=== PATIENT | female | born 1935 | race Caucasian/White ===

== ENCOUNTER 2020-06-28 05:31 | Inpatient (IN) | payer MEDICARE, MEDICAID, SELFPAY ==
[2020-06-28] VITALS (17 sets, daily range): BP systolic 118–253; BP diastolic 54–207; PULSE 84–140; RESP 16–24; TEMP 36.3–36.9; O2SAT 92–99; BMI 24.0; BMI 23.8; BMI 23.9
--- NOTE | 2020-06-28 05:32 | RAD_ITS ---
STUDY: X-RAY CHEST REASON FOR EXAM: Female, 85 years old. Neuro deficit, acute, stroke suspected TECHNIQUE: Single AP portable view of the chest. COMPARISON: None. FINDINGS: EKG electrodes are seen. Bilateral breast implants with peripheral calcification. Hyperinflation. Mild increased markings at the lung bases suggestive of bibasilar scarring. Normal size heart. Normal mediastinum and nathanael. Normal visualized pulmonary arteries. There is atherosclerotic calcification of the aortic arch with tortuosity. There are diffuse degenerative changes of the visualized thoracic spine. There is degenerative osteoarthritis of the bilateral shoulders. There is no demonstrated abnormality of the visualized soft tissue structures of the upper abdomen. RAD/Chest 1 View IMPRESSION: Hyperinflation. Findings suggestive of mild scarring at the lung bases. Electronically Signed: Sudhakar Bernardo MD at 8:18 EST , Service support ,
--- NOTE | 2020-06-28 05:32 | CT_ITS ---
STUDY: CT HEAD STROKE PROTOCOL W/O CONTRAST INJECTION REASON FOR EXAM: Female, 85 years old. STROKE, PT CONFUSED, DECLINE WHILE IN ROUTE RADIATION DOSAGE (If Supplied By Facility): CTDIvol = ( ) mGy, DLP = ( ) mGycm TECHNIQUE: Transaxial CT imaging of the brain was performed without administration of intravenous contrast material. Individualized dose optimization techniques were used for this CT. COMPARISON: No relevant priors. FINDINGS: Normal soft tissue structures. Normal calvarium. There is a region of decreased attenuation in the right posterior parietal lobe. There is partial effacement of adjacent cortical sulci within the more inferior portions of this region, and I suspect this represents an acute or subacute infarction. No clinically significant mass effect is present. There is no demonstrated hemorrhage. There is mild cerebral atrophy with widening of the extra-axial spaces and ventricular dilatation. There are areas of decreased attenuation within the white matter tracts of the supratentorial brain, consistent with microvascular disease changes. Normal basal ganglia and thalami. Normal brainstem. There is mild cerebellar atrophy. There is atherosclerotic calcification of the vertebral and cavernous carotid arteries. There is no intracranial hemorrhage. Normal visualized paranasal sinuses. ASPECT score: 9 CT/STROKE Brain/Head without Cont IMPRESSION: Acute or subacute infarction in the right parietal lobe. Chronic involutional changes of the brain. N.B. : The above information has been verbally conveyed by Jace Abdul MD to Sakina Triplett MD, on 06/28/2020 05:53:05 (ET). Electronically Signed: Jace Abdul MD at 6:00 EST , Service support ,
--- NOTE | 2020-06-28 05:32 | EKG12_ITS ---
Test Reason : NEURO Blood Pressure : / mmHG Vent. Rate : 109 BPM Atrial Rate : 109 BPM P-R Int : 190 ms QRS Dur : 120 ms QT Int : 358 ms P-R-T Axes : 004 -70 051 degrees QTc Int : 482 ms Sinus tachycardia Left axis deviation Right bundle branch block Moderate voltage criteria for LVH, may be normal variant Possible Lateral infarct , age undetermined Inferior infarct , age undetermined , cannot be excluded Abnormal ECG Confirmed by AURORA NOBLE, CONCHIS ([id number]), [employer]zing and boring machine helper MARSHA GONZÁLES ([id number]) on 07/01/2020 1:39:07 PM Referred By: TASNEEM Confirmed By:CONCHIS SIMON MD
--- NOTE | 2020-06-28 05:37 | ED.RN ---
CALL TO [facility] STROKE LINE
--- NOTE | 2020-06-28 05:38 | ED.RN ---
NO OLD EKGS IN MUSE
--- NOTE | 2020-06-28 05:42 | NURSING ---
PATIENT RETURNED TO ROOM AT THIS TIME FROM CT
--- NOTE | 2020-06-28 05:42 | ED.RN ---
[facility] BEAMING IN TO SPEAK WITH PATIENT AT THIS TIME
--- NOTE | 2020-06-28 05:47 | ED.VISSUMM ---
- ER Visit Summary Date of Service: 06/28/20 Chief Complaint: [Difficulty with speech and possible stroke] History of Present Illness: The patient is a 85 F [presents to the emergency department from [facility] via [facility]. Patient went to bed last evening around 11 PM and was last known well at that time. Patient awoke this morning and put on her call light and she seemed confused with slurred speech. Patient does have history of prior stroke as well as hypertension, COPD, gout, anemia, depression, chronic kidney disease, and atrial fibrillation. Patient does describe a headache. She denies any chest pain or shortness of breath. She denies recent illness although she is a poor historian.] Physical Examination: [HEENT-PERRLA, EOMI. Cranial nerves II through XII grossly intact. TMs clear. Mucous membranes moist. No adenopathy. Cardiovascular-regular rate and rhythm without murmur or ectopy Lungs-clear to auscultation, chest wall stable without crepitus or subcu emphysema Abdomen-normoactive bowel sounds, soft, nontender, no rebound or rigidity, no peritoneal signs. Neuro exam difficult as patient does not always follow commands. Right hand seems somewhat contracted although she still able to use it. NIH stroke scale was a 4 for dysarthria and expressive aphasia as well as some subtle weakness of the right arm compared to the left. Extremities-intact ?4, normal range of motion, normal pulses, atraumatic] Test Results: [CT scan of the brain without contrast obtained showed a right posterior parietal acute infarct. CBC with differential showed a white of 8.9, hemoglobin 11.6, hematocrit 36, plates 173. Chemistries unremarkable. INR 1.0. Troponin less than 0.015. EKG obtained showed a sinus rhythm with a ventricular rate of 109 bpm with a right bundle branch block. CTA of the head and neck obtained read by radiology as no acute occlusions. Urinalysis obtained showed 500 cassette esterase and greater than 100 WBCs.] Emergency Department Course and Treatment: [Patient received labetalol for elevated blood pressures as high as 250/1 30s and we did get 1 reading of a diastolic of 207 which may be erroneous. Patient started on Rocephin 1 g IV for UTI.] Treatment Plan: [Admit] Disposition: [Admit] Impression: [CVA UTI Hypertension] This note was generated with Anki dictation software. It may contain incorrect words, spelling, and punctuation that were not noted in review of the chart prior to signing ED Disposition - Plan for ED Patient: Referrals: Rosalinda Morataya MD [Primary Care Provider] -
--- NOTE | 2020-06-28 05:59 | ED.RN ---
PATIENT VERY CONFUSED AND DIFFICULTY FOLLOWING DIRECTIONS. PATIENT VERY DIFFICULTY TO COMPLETE NEURO EXAM SON
[2020-06-28 06:02] LABS: Absolute Lymphocyte Count 2.75 X10^3/uL (0.83-4.51); Absolute Neutrophil Count 5.2 X10^3/uL (2.0-7.7); Basophil# 0.04 X10^3/uL; Basophil% 0.5 % (0-1); Eosinophil# 0.28 X10^3/uL; Eosinophils% 3.2 % (0-5); Hematocrit 35.8 % (37-47); Hemoglobin 11.6 g/dL (12.0-15.0); Lymphocyte # 2.75 X10^3/ul (4.0); Mean Corp Hgb Conc 32.4 g/dL (32-36); Mean Corpuscular Hgb 31.4 pg (27.0-32.0); Mean Corpuscular Volume 96.8 fL (81-99); Monocyte# 0.56 X10^3/uL; Monocyte% 6.3 % (0-10); NRBC Flagged by Analyzer 0 % (0-5); Neutrophil # 5.18 X10^3/uL (2.7-7.7); Neutrophil % 58.4 % (47-70); Platelet Count 173 K/mm3 (150-450); RBC Distribution Width CV 13.1 % (11.6-14.6); White Blood Count 8.9 K/mm3 (4.4-11.0)
[2020-06-28] MEDS: Labetalol (Prefilled) 20 MG/4 ML IV (06:05)
[2020-06-28 06:16] LABS: Partial Thromboplast Time 35.8 Seconds (24.1-36.2)
[2020-06-28 06:22] LABS: Anion Gap 9 (5-15); BUN 38 mg/dL (7-18); BUN/Creat Ratio 26.2 RATIO (10-20); Calcium,Total 9.8 mg/dL (8.5-10.1); Chloride 105 mmol/L (98-107); Creatinine, Serum 1.45 mg/dL (0.55-1.02); EST Glomerular Filtration Rate 37 mL/min (>60); Est Glom Filt Rate - Afr Amer 44 mL/min (>60); Estimated Creatinine Clearance 25.52 ml/min; Glucose 137 mg/dL (74-106); Potassium 4.2 mmol/L (3.5-5.1); Sodium Level 139 mmol/L (136-145)
--- NOTE | 2020-06-28 06:24 | CT_ITS ---
STUDY: CTA HEAD AND NECK WITH CONTRAST REASON FOR EXAM: Female, 85 years old. CVA RADIATION DOSAGE (If Supplied By Facility): CTDIvol = ( 18.16 ) mGy, DLP = ( 498.22 ) mGycm TECHNIQUE: CT angiography was performed with a multi-detector CT scanner. Data acquisition was obtained from the skull base through the vertex following intravenous administration of IV 100mL Isovue-370. MIP images were reconstructed from the axial data set. Post-processing of the angiographic images was performed, with multiplanar reformation and 3D reconstruction. Individualized dose optimization techniques were used for this CT. COMPARISON: No relevant priors. FINDINGS: Normal bilateral petrous carotid arteries. There is calcified plaque formation of the right cavernous carotid artery, with a moderate stenosis (50-75%). There is calcified plaque formation of the left cavernous carotid artery, with a severe stenosis (greater than 75%). Normal right A1 segments of the anterior cerebral artery. Normal left A1 segments of the anterior cerebral artery. Normal intact anterior communicating artery (ACOM). Normal bilateral A2 segments of the anterior cerebral arteries. Normal right M1 and M2 segments of the middle cerebral arteries, with a normal M1 bifurcation. Normal left M1 and M2 segments of the middle cerebral arteries, with a normal M1 bifurcation. There is non-visualization of the right posterior communicating artery (PCOM). There is non-visualization of the left posterior communicating artery (PCOM). There is a small atretic left vertebral artery with a dominant right vertebral artery. Normal basilar artery with a normal basilar bifurcation. The visualized bilateral superior cerebellar (SCA) arteries are normal. Normal bilateral P1, P2 and visualized P3 segments of the posterior cerebral arteries. There is no demonstrated aneurysm of the [place]. AORTIC ARCH: There is atherosclerotic calcific plaque formation of the aortic arch and great vessels arising from the aortic arch, without a hemodynamically significant stenosis. There is a normal origin of the brachiocephalic, left common carotid, and left subclavian arteries. Normal origins of the brachiocephalic, left common carotid, and left subclavian arteries. RIGHT CAROTID ARTERIES: Normal right common carotid artery (CCA). There is mild atherosclerotic plaque formation with minimal narrowing of the right carotid bulb. There is mild atherosclerotic plaque formation of the origin of the right internal carotid artery with less than 50% cross sectional diameter stenosis. Normal visualized cervical portion of the right internal carotid artery. Normal origin of the right external carotid artery (ECA). LEFT CAROTID ARTERIES: Normal left common carotid artery (CCA). There is mild atherosclerotic plaque formation with minimal narrowing of the left carotid bulb. Normal origin of the left internal carotid (ICA) artery without a hemodynamically significant stenosis. Normal visualized cervical portion of the left internal carotid artery. Normal origin of the left external carotid artery (ECA). VERTEBRAL ARTERIES: Normal bilateral vertebral arteries. 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 Moderate stenosis of the right cavernous carotid artery, with approximately 65% luminal narrowing. No visualized occlusion of major intracranial arteries. No demonstrated aneurysm. Nonvisualization of the posterior communicating arteries, normal variant. No evidence for hemodynamically significant arterial stenosis of the cervical carotid or cervical vertebral arteries. Incidental finding of thyroid nodules. Suggest elective follow-up thyroid ultrasound for further characterization. N.B. : The above information has been verbally conveyed by Jace Abdul MD to Dr Ioana MD, on 06/28/2020 07:16:08 (ET). Electronically Signed: Jace Abdul MD at 7:48 EST , Service support ,
[2020-06-28 06:36] LABS: Bacteria 0 SEEN /hpf (None Seen); Mucous, Urine 0 SEEN /hpf (<or=2+); Squamous Epithelial Cells - UA 0 SEEN /hpf (5-10)
[2020-06-28 06:37] LABS: Color, Urine Yellow (Yellow); Glucose, Dipstick Normal (Normal); Ketone-Dipstick Negative (Negative); Leukocyte Esterase-Dipstick 500 /ul (Negative); Nitrite-Dipstick Negative (Negative); Occult Blood-Urine 50 /ul (Negative); Protein-Dipstick 100 mg/dl (Negative); Specific Gravity, Urine 1.015 (1.002-1.030); Urine Bilirubin Dipstick Negative (Negative); Urine Clarity Cloudy (Clear); Urine Urobilinogen Normal (Normal)
[2020-06-28 06:48] LABS: Red Blood Cells-Urine 10-25 SEEN /hpf (0-5); White Blood Cells >100 SEEN /hpf (0-5)
--- NOTE | 2020-06-28 07:08 | ED.RN ---
spoke with son in law franky at this time and updated on admission. is currently admitted to [facility] linda unable to reach. Franky will be primary contact. Family Kike and Dai will be updated.
[2020-06-28] MEDS: Ceftriaxone 1 GM/50 ML BAG IV (07:39)
--- NOTE | 2020-06-28 08:15 | ECHOD_ITS ---
Reason For Study: TIA/ STROKE Procedure This was a 2D Doppler, Color Flow transthoracic echocardiogram. Patient was scanned in supine position during reflux assessment. Pt declined for test to be finished due to her pain level. Exam performed portable in patient room. Left Ventricle Normal LV size. The estimated ejection fraction is 40 %. Mild to moderate segmental systolic dysfunction (see wall motion). Stage 1 diastolic dysfunction. [place] : Akinetic. Mid-anteroseptal : Hypokinetic. Mid-Anterior : Hypokinetic. The rest of the wall segments are normal. Right Ventricle Normal RV size. Normal systolic function. Atria Normal left atrium. Normal right atrium. Mitral Valve There is mild mitral annular calcification. Tricuspid Valve Normal tricuspid valve. Mild (1+) tricuspid valve insufficiency. Pulmonary artery systolic pressure is 36 mmHg. Aortic Valve Bioprosthetic aortic valve. Trivial perivalvular insufficiency of the aortic valve. Pulmonic Valve Normal pulmonic valve. Great Vessels Normal aortic root. The pulmonary artery is normal size. Normal inferior vena cava. Pericardium/Pleural No pericardial effusion. Medication Pt refused bubble study. MMode/2D Measurements & Calculations LVIDd: 4.8 cm IVSd: 1.1 cm LVOT diam: 2.0 cm LVIDs: 3.1 cm LVPWd: 1.2 cm RVDd: 3.3 cm FS: 35.1 % LVOT area: 3.1 cm2 Ao root diam: 2.3 cm LAV(MOD-bp): 75.7 ml LVAd ap4: 31.9 cm2 LAV(MOD-bp) Indexed: 44.0 ml/m2 EDV(MOD-sp4): 97.8 ml LAV(MOD-sp2): 78.8 ml EDV(sp4-el): 103.5 ml LAV(MOD-sp4): 57.5 ml LVAs ap4: 23.0 cm2 ESV(MOD-sp4): 55.3 ml ESV(sp4-el): 57.1 ml EF(MOD-sp4): 43.5 % EF(sp4-el): 44.8 % SV(MOD-sp4): 42.5 ml SV(sp4-el): 46.4 ml LA A4 area: 18.9 cm2 LA dimension(2D): 4.5 cm RA A4 area: 10.7 cm2 Time Measurements MV dec time: 0.33 sec Doppler Measurements & Calculations MV E max juaquin: 72.9 cm/sec Lat Peak E' Juaquin: 8.1 cm/sec Med Peak E' Juaquin: 3.7 cm/sec MV A max juaquin: 133.8 cm/sec E/E' lat: 9.0 E/E' med: 19.8 MV E/A: 0.54 MV V2 max: 143.8 cm/sec Ao V2 max: 243.5 cm/sec LV V1 max: 96.0 cm/sec MV max P.3 mmHg Ao max P.7 mmHg LV V1 max P.7 mmHg MV V2 mean: 79.6 cm/sec Ao V2 mean: 177.4 cm/sec LV V1 mean P.5 mmHg MV mean P.9 mmHg Ao mean P.6 mmHg LV V1 mean: 77.0 cm/sec MV V2 VTI: 41.9 cm Ao V2 VTI: 43.2 cm LV V1 VTI: 19.0 cm MVA(VTI): 1.4 cm2 GISELE(I,D): 1.3 cm2 GISELE(V,D): 1.2 cm2 SV(LVOT): 58.0 ml PA V2 max: 121.0 cm/sec TR max juaquin: 288.0 cm/sec TR max P.2 mmHg MV P1/2t-pr_phl: 135.1 msec Interpretation Summary Normal LV size. The estimated ejection fraction is 40 %. Mild to moderate segmental systolic dysfunction (see wall motion). Stage 1 diastolic dysfunction. Bioprosthetic aortic valve. Trivial perivalvular insufficiency of the aortic valve. Ordering Physician: Gerson Leyva Referring Physician: TRINO GUY Performed By: Edilma Marmolejo, MIRIAM, RVT
--- NOTE | 2020-06-28 08:15 | MRI_ITS ---
STUDY: MRI BRAIN WITHOUT CONTRAST REASON FOR EXAM: Female, 85 years old. slurred speech, rt sided weakness, confusion TECHNIQUE: Standardized multiplanar fat and water weighted pulse sequences were obtained. COMPARISON: 06/28/2020 CT of the head FINDINGS: There is moderate cerebral atrophy with widening of the extra-axial spaces and ventricular dilatation. There are multiple white matter hyperintensities, distributed throughout the deep white matter tracts of the cerebral hemispheres, consistent with moderate chronic white matter ischemic changes. Right parietal encephalomalacia and gliosis, consistent with prior insult is noted. Bilateral basal ganglia and cerebellar lacunar infarcts are noted. There is no extra-axial fluid accumulation. Normal flow voids within the major intracranial circulation suggesting patency by spin echo criteria. Normal sella turcica, pituitary gland, infundibular stalk, optic chiasm and hypothalamus. Normal tectal plate and pineal gland. Normal midbrain, arlette and medulla. MRI/Brain without Contrast IMPRESSION: No acute intracranial abnormality. Chronic right parietal infarct. Moderate chronic microvascular ischemic changes. Electronically Signed: Ml Gee MD at 15:41 EST Tel , Service support ,
[2020-06-28] MEDS: 0.9% Normal Saline 1,000 ML 75 ML IV ×2 (09:03→23:15)
--- NOTE | 2020-06-28 15:00 | CASEMGMT ---
HARSH noted patient is from [facility]. HARSH called [facility] and spoke with Ashia. Patient is a assisted resident, but they would want a pre-cert for her to return. They would also want a COVID test within 24 hours of her admission back to [facility]. HARSH will fax updates as soon as HARSH has more information. Plan: d/c back to [facility] pending pre-cert and when she is ready. Angelina BOO MSW
[2020-06-28] MEDS: Heparin Injection (Vial) 5,000 UNIT/ML VIAL 5000 UNIT SC ×2 (15:39→22:30)
--- NOTE | 2020-06-28 16:16 | PCS.PANDOC ---
PANDEMIC DOCUMENTATION INITIATED: Date: 06/28/2020 Time: 814
--- NOTE | 2020-06-28 19:32 | PCM.HP.STD ---
Problem List (1) Slurred speech Status: Acute History of Present Illness Date of Admission: 06/28/20 Chief Complaint: Slurred speech The patient is a 85 year old F who was seen in the emergency room today at [facility] after being transferred in from a local extended care facility at which she resides due to slurred speech. Patient was found this morning to have slurred speech, her last known well check was last night. Patient has been in a assisted since November 2019, information was obtained from the patient's stepson as the patient was not able to provide me any information at the time my examination this morning. Work-up in the emergency room included a brain CT which showed an acute or subacute infarction of the right parietal lobe, teleneurology was consulted and did not recommend administration of TPA, labs were obtained and her UA indicated the patient had a UTI. Patient's creatinine was elevated at 1.45 and her BUN was 38. On examination, patient was alert but had expressive aphasia and was not able to provide information to this examiner. Patient will be admitted to PCU for acute cystitis and ischemic stroke, she will have an MRI performed as well as an echocardiogram. Patient was given ceftriaxone in the emergency room, patient is on aspirin at the assisted facility. I have added Plavix at this time. Past Medical History Allergies gluten Allergy (Verified 06/28/20 05:34) NEEDS FOLLOW-UP iron Allergy (Verified 06/28/20 05:34) NEEDS FOLLOW-UP Penicillins [PCN] Allergy (Verified 06/28/20 05:34) NEEDS FOLLOW-UP shellfish derived Allergy (Verified 06/28/20 05:34) NEEDS FOLLOW-UP Sulfa (Sulfonamide Antibiotics) Allergy (Verified 06/28/20 05:34) NEEDS FOLLOW-UP Home Medications: Ambulatory Orders Medication Instructions Recorded Aspirin [Aspirin, Baby] 81 mg PO DAILY@0800 06/28/20 Ergocalciferol (Vitamin D2) 1,250 mcg PO DAILY 06/28/20 [Drisdol] Escitalopram Oxalate [Lexapro] 5 mg PO DAILY 06/28/20 Fluticasone 0.05% [Flonase Nasal 2 spray NASAL DAILY 06/28/20 [place]] Ipratropium/Albuterol Sulfate 3 ml INHALATION Q4H 06/28/20 [Iprat-Albut 0.5-3(2.5) mg/3 ml] Metoprolol Succinate [[place]sp[place] 50 mg PO DAILY 06/28/20 [place]] Pantoprazole Sodium 40 mg PO DAILY 06/28/20 Surgical History: - - Aortic valve replacement Psychiatric History: No pertinent psych hx Lives: [facility] Smoking Status: Unknown if ever smoked Tobacco Use: Non-smoker Alcohol: None Drugs: None - *Family History Maternal History Items: Unknown Paternal History Items: Unknown Review of Systems Comment: Unable to obtain a review of systems from the patient due to expressive aphasia, medical information was obtained from the patient's family member and the assisted facility by phone. VTE Information - Inpt Only VTE Present on Admission: No VTE Mechan Device Prophylaxis: None VTE Pharm Prophylaxis ordered?: Yes - Physical Exam Vitals/I&O's: Vital Signs Temp Pulse Resp BP Pulse Ox 98.1 F 91 16 122/63 H 97 06/28/20 16:20 06/28/20 16:20 06/28/20 16:20 06/28/20 16:20 06/28/20 16:20 Oxygen Delivery Method Room Air Weight: 63.1 kg Body Mass Index (BMI) 23.8 Finger Stick Blood Glucose 97 Intake and Output for Last 24 Hours 06/26/20 06/27/20 06/28/20 23:59 23:59 23:59 Intake Total 290 / 290 Output Total 1200 / 1200 Balance -910 / -910 General: Alert, Cooperative, No apparent distress, Well developed, Well nourished HEENT: Atraumatic, PERRLA, EOMI, Normocephalic Oral: Moist Mucosa Neck: Supple, No JVD, Negative Carotid Bruits, Trachea Midline, Thyroid Normal Size and Texture Lungs: Clear to auscultation, Normal air movement, No rhonchi, No wheeze, No rales Cardiovascular: Regular rate, Regular Rhythm, Normal S1, Normal S2, No murmurs, PMI Normal, No rub noted, No Gallop Abdomen: Bowel Sounds Present, Soft, Non Tender, Non-Distended Extremities: No clubbing, No cyanosis, No edema, Capillary Refill Less than 3 Seconds Skin: No rashes, No breakdown Musculoskeletal: No Tenderness to Palpation of Joints or Extremities Neurological: Cranial nerves II-XII grossly intact, - - Patient has moderate expressive aphasia Psych/Mental Status: Normal Affect, - - Patient has expressive aphasia Microbiology Past 72 Hours 06/28/20 06:10 Mucosa - Nose SARS-CoV-2 Antigen (Rapid) - Final Laboratory Results 06/28/20 05:53: WBC 8.9, RBC 3.70 L, Hgb 11.6 L, Hct 35.8 L, MCV 96.8, MCH 31.4, MCHC 32.4, RDW Std Deviation 46.0 H, RDW Coeff of Jacquelin 13.1, Plt Count 173, MPV 10.0, Immature Gran % (Auto) 0.600, Neut % (Auto) 58.4, Lymph % (Auto) 31.0, [place] % (Auto) 6.3, Eos % (Auto) 3.2, Baso % (Auto) 0.5, Absolute Neuts (auto) 5.2, Absolute Lymphs (auto) 2.75, Nucleated RBC % 0 06/28/20 05:53: PT 13.0, INR 1.0, APTT 35.8 06/28/20 05:53: Sodium 139, Potassium 4.2, Chloride 105, Carbon Dioxide 25.0, Anion Gap 9, BUN 38 H, Creatinine 1.45 H, Estim Creat Clear Calc 25.52, Est GFR (MDRD) Af Amer 44 L, Est GFR (MDRD) Non-Af 37 L, BUN/Creatinine Ratio 26.2 H, Glucose 137 H, Calcium 9.8, Troponin I < 0.015 06/28/20 06:28: Urine Color Yellow, Urine Clarity Cloudy, Urine pH 8.0, Ur Specific Goodman 1.015, Urine Protein 100 H, Urine Glucose (UA) Normal, Urine Ketones Negative, Urine Occult Blood 50 H, Urine Nitrite Negative, Urine Bilirubin Negative, Urine Urobilinogen Normal, Ur Leukocyte Esterase 500 H, Urine RBC 10-25 SEEN, Urine WBC >100 SEEN, Ur Squamous Epith Cells 0 SEEN, Urine Bacteria 0 SEEN, Urine Mucus 0 SEEN Current Medications Aspirin (Aspirin 81 Mg Tab.Chew) 81 mg PO DAILY@0800 [facility] Last Admin: 06/28/20 09:00 Dose: Not Given Documented by: Atorvastatin Calcium (Atorvastatin Calcium 80 Mg Tablet) 80 mg PO QHS [facility] Clopidogrel Bisulfate (Clopidogrel Bisulfate 75 Mg Tablet) 75 mg PO DAILY [facility] Last Admin: 06/28/20 09:00 Dose: Not Given Documented by: Escitalopram Oxalate (Escitalopram Oxalate 10 Mg Tablet) 5 mg PO DAILY [facility] Last Admin: 06/28/20 09:00 Dose: Not Given Documented by: Heparin Sodium (Porcine) (Heparin Injection (Vial) 5,000 Unit/Ml Vial) 5,000 unit SC Q8 [facility] Last Admin: 06/28/20 15:39 Dose: 5,000 unit Documented by: Hydralazine HCl (Hydralazine 20 Mg/Ml Vial) 5 mg IV Q30M PRN PRN Reason: to maintain BP goals Sodium Chloride () 1,000 mls @ 75 mls/hr IV .[id number] [facility] Last Admin: 06/28/20 09:03 Dose: 75 mls/hr Documented by: Ceftriaxone Sodium (Rocephin) 1 gm in 50 mls @ 100 mls/hr IV Q24 [facility] Labetalol HCl (Labetalol (Prefilled) 20 Mg/4 Ml) 10 - 20 mg IV Q10M PRN PRN PRN Reason: to Maintain BP Goals Pantoprazole Sodium (Pantoprazole Sodium 40 Mg Tablet) 40 mg PO DAILY [facility] Last Admin: 06/28/20 09:00 Dose: Not Given Documented by: Sodium Chloride (0.9% Saline Lock 10 Ml Syringe) 10 - 40 ml IV UD PRN PRN Reason: SALINE FLUSH Assessment/Plan All Active Problems Slurred speech (Acute) #1 expressive aphasia-etiology unclear at this time, I have learned from the patient's stepson that she had a past history of a stroke in 2019-this was felt to be cardioembolic according to the assisted- but the patient was unable to take anticoagulants due to an episode of bleeding. At this time patient is not in atrial fibrillation, I have elected to place her on Plavix. At the time of this dictation in the early evening, it was noted that the patient's MRI did not show an acute stroke-it is questionable whether the patient had a TIA-I have elected for now to keep her on Plavix and aspirin. In talking with the patient's stepson, he has confirmed that the patient sometimes has problems speaking early in the morning after waking up. On reexamination this afternoon, patient speech is much clearer, it is possible that the patient had an element of encephalopathy due to cystitis. #2 cerebrovascular disease-patient has had a past history of CVA in 2019-it appears her records are at the [facility]. #3 atherosclerotic heart disease #4 cardiomyopathy-a seem to be ischemic in nature-patient's echocardiogram today was completed and showed an EF of 40%. 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 Inpatient E&M: 84701 Init Hosp L3
[2020-06-28] MEDS: Lisinopril 5 MG Tablet PO (20:54)
[2020-06-28] MEDS: Atorvastatin Calcium 80 MG Tablet PO (20:54)
[2020-06-28] MEDS: Menthol/Lanolin/Calamine/Znox 113 GM Tube 1 APPLIC TOPICAL (23:15)
[2020-06-29] VITALS (9 sets, daily range): BP systolic 110–144; BP diastolic 44–78; PULSE 66–94; RESP 14–18; TEMP 36.2–36.9; O2SAT 96–100; BMI 23.8
[2020-06-29 06:06] LABS: Absolute Lymphocyte Count 2.46 X10^3/uL (0.83-4.51); Absolute Neutrophil Count 4.2 X10^3/uL (2.0-7.7); Basophil# 0.05 X10^3/uL; Basophil% 0.7 % (0-1); Eosinophil# 0.22 X10^3/uL; Eosinophils% 2.9 % (0-5); Hematocrit 36.5 % (37-47); Lymphocyte # 2.46 X10^3/ul (4.0); Lymphocyte % 32.7 % (19-41); Mean Corp Hgb Conc 30.1 g/dL (32-36); Mean Corpuscular Hgb 31.7 pg (27.0-32.0); Mean Corpuscular Volume 105.2 fL (81-99); Mean Platelet Vol. 10.6 fl (6.2-12.0); NRBC Flagged by Analyzer 0 % (0-5); Neutrophil # 4.16 X10^3/uL (2.7-7.7); Neutrophil % 55.2 % (47-70); Platelet Count 138 K/mm3 (150-450); RBC Distribution Width CV 13.5 % (11.6-14.6); RBC Distribution Width SD 51.1 fl (35.1-43.9); Red Blood Count 3.47 M/mm3 (4.2-5.4); White Blood Count 7.5 K/mm3 (4.4-11.0)
[2020-06-29] MEDS: Heparin Injection (Vial) 5,000 UNIT/ML VIAL 5000 UNIT SC ×3 (06:11→21:41)
[2020-06-29] MEDS: Menthol/Lanolin/Calamine/Znox 113 GM Tube 1 APPLIC TOPICAL ×3 (06:11→21:44)
[2020-06-29 06:27] LABS: Anion Gap 6 (5-15); BUN 34 mg/dL (7-18); BUN/Creat Ratio 26.6 RATIO (10-20); Calcium,Total 8.8 mg/dL (8.5-10.1); Chloride 110 mmol/L (98-107); Creatinine, Serum 1.28 mg/dL (0.55-1.02); EST Glomerular Filtration Rate 42 mL/min (>60); Est Glom Filt Rate - Afr Amer 51 mL/min (>60); Estimated Creatinine Clearance 27.75 ml/min; Glucose 88 mg/dL (74-106); Sodium Level 139 mmol/L (136-145)
[2020-06-29] MEDS: Aspirin 81 MG TAB.CHEW PO (08:12)
[2020-06-29] MEDS: Escitalopram Oxalate 10 MG Tablet 5 MG PO (08:12)
[2020-06-29] MEDS: Clopidogrel Bisulfate 75 MG Tablet PO (08:12)
[2020-06-29] MEDS: Pantoprazole Sodium 40 MG Tablet PO (08:12)
[2020-06-29] MEDS: Lisinopril 5 MG Tablet PO (08:14)
[2020-06-29] MEDS: Ceftriaxone 1 GM/50 ML BAG IV (08:21)
--- NOTE | 2020-06-29 09:10 | TELEMED_ITS ---
[facility] Telemed has confirmed receipt of a request for visit. This document confirms receipt of the order initiating the consult. To find the results of the consultation, please view the patient's reports for the scanned Telemed Consult.
--- NOTE | 2020-06-29 09:43 | CASEMGMT ---
HARSH faxed updates to [facility]. HARSH will continue to follow for patient's return to [facility]. Angelina BOO MSW
[2020-06-29] MEDS: 0.9% Normal Saline 1,000 ML 75 ML IV (10:57)
--- NOTE | 2020-06-29 11:27 | CASEMGMT ---
SW assisted pt in completing PHQ-9. The questionnaire does not indicate depression. VERNA Ruby
--- NOTE | 2020-06-29 14:15 | PCM.PN.HOSP ---
Patient Problems: Active and Suspected Problems Slurred speech (Acute) Reason for Visit: Follow-up on acute metabolic encephalopathy Subjective: Patient was seen and examined. She is alert, oriented x3 with. She has been noted to be occasionally confused. No other events overnight. Objective: Physician exam: General: Alert, Cooperative, No apparent distress, Well developed, Well nourished HEENT: Atraumatic, PERRLA, EOMI, Normocephalic Oral: Moist Mucosa Neck: Supple, No JVD, Negative Carotid Bruits, Trachea Midline, Thyroid Normal Size and Texture Lungs: Clear to auscultation, Normal air movement, No rhonchi, No wheeze, No rales Cardiovascular: Regular rate, Regular Rhythm, Normal S1, Normal S2, No murmurs, PMI Normal, No rub noted, No Gallop Abdomen: Bowel Sounds Present, Soft, Non Tender, Non-Distended Extremities: No clubbing, No cyanosis, No edema, Capillary Refill Less than 3 Seconds Skin: No rashes, No breakdown Musculoskeletal: No Tenderness to Palpation of Joints or Extremities Neurological: Cranial nerves II-XII grossly intact, - - Patient has moderate expressive aphasia Psych/Mental Status: Normal Affect, - - Patient has expressive aphasia Vitals/I&O's: Vital Signs Temp Pulse Resp BP Pulse Ox 98.4 F 79 16 110/46 L 100 06/29/20 14:00 06/29/20 14:00 06/29/20 14:00 06/29/20 14:00 06/29/20 14:00 Oxygen Delivery Method Room Air Weight: 63.1 kg Body Mass Index (BMI) 23.8 Finger Stick Blood Glucose 97 Intake and Output for Last 24 Hours 06/27/20 06/28/20 06/29/20 23:59 23:59 23:59 Intake Total 1290 / 1490 1467.5 / 1467.5 Output Total 1200 / 1450 630 / 630 Balance 90 / 40 837.5 / 837.5 Microbiology Past 72 Hours 06/28/20 06:28 Urine, Catheterized Urine Culture - 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 Gram negative jackeline 06/28/20 06:10 Mucosa - Nose SARS-CoV-2 Antigen (Rapid) - Final Laboratory Results 06/29/20 05:20: WBC 7.5, RBC 3.47 L, Hgb 11.0 L, Hct 36.5 L, MCV 105.2 H D, MCH 31.7, MCHC 30.1 L D, RDW Std Deviation 51.1 H, RDW Coeff of Jacquelin 13.5, Plt Count 138 L, MPV 10.6, Immature Gran % (Auto) 0.500, Neut % (Auto) 55.2, Lymph % (Auto) 32.7, [place] % (Auto) 8.0, Eos % (Auto) 2.9, Baso % (Auto) 0.7, Absolute Neuts (auto) 4.2, Absolute Lymphs (auto) 2.46, Nucleated RBC % 0 06/29/20 05:20: Sodium 139, Potassium 4.0, Chloride 110 H, Carbon Dioxide 23.0, Anion Gap 6, BUN 34 H, Creatinine 1.28 H, Estim Creat Clear Calc 27.75, Est GFR (MDRD) Af Amer 51 L, Est GFR (MDRD) Non-Af 42 L, BUN/Creatinine Ratio 26.6 H, Glucose 88, Calcium 8.8 Current Medications Aspirin (Aspirin 81 Mg Tab.Chew) 81 mg PO DAILY@0800 COUNTS INCLUDE 234 BEDS AT THE [facility] Last Admin: 06/29/20 08:12 Dose: 81 mg Documented by: Atorvastatin Calcium (Atorvastatin Calcium 80 Mg Tablet) 80 mg PO QHS COUNTS INCLUDE 234 BEDS AT THE [facility] Last Admin: 06/28/20 20:54 Dose: 80 mg Documented by: Calamine/Phenol (Menthol/Lanolin/Calamine/Znox 113 Gm Tube) 1 applic TOPICAL TID COUNTS INCLUDE 234 BEDS AT THE [facility]; Protocol Last Admin: 06/29/20 14:12 Dose: 1 applic Documented by: Clopidogrel Bisulfate (Clopidogrel Bisulfate 75 Mg Tablet) 75 mg PO DAILY COUNTS INCLUDE 234 BEDS AT THE [facility] Last Admin: 06/29/20 08:12 Dose: 75 mg Documented by: Escitalopram Oxalate (Escitalopram Oxalate 10 Mg Tablet) 5 mg PO DAILY COUNTS INCLUDE 234 BEDS AT THE [facility] Last Admin: 06/29/20 08:12 Dose: 5 mg Documented by: Heparin Sodium (Porcine) (Heparin Injection (Vial) 5,000 Unit/Ml Vial) 5,000 unit SC Q8 COUNTS INCLUDE 234 BEDS AT THE [facility] Last Admin: 06/29/20 14:12 Dose: 5,000 unit Documented by: Sodium Chloride () 1,000 mls @ 75 mls/hr IV .[id number] COUNTS INCLUDE 234 BEDS AT THE [facility] Last Admin: 06/29/20 10:57 Dose: 75 mls/hr Documented by: Ceftriaxone Sodium (Rocephin) 1 gm in 50 mls @ 100 mls/hr IV Q24 COUNTS INCLUDE 234 BEDS AT THE [facility] Last Infusion: 06/29/20 10:18 Dose: Infused Documented by: Lisinopril (Lisinopril 5 Mg Tablet) 5 mg PO DAILY COUNTS INCLUDE 234 BEDS AT THE [facility] Last Admin: 06/29/20 08:14 Dose: 5 mg Documented by: Pantoprazole Sodium (Pantoprazole Sodium 40 Mg Tablet) 40 mg PO DAILY COUNTS INCLUDE 234 BEDS AT THE [facility] Last Admin: 06/29/20 08:12 Dose: 40 mg Documented by: Sodium Chloride (0.9% Saline Lock 10 Ml Syringe) 10 - 40 ml IV UD PRN PRN Reason: SALINE FLUSH STROKE Vital Signs/Narrative: Vital Signs Temp Pulse Resp BP Pulse Ox 06/29/20 14:00 98.4 F 79 16 110/46 L 100 Medical Necessity - Tobacco Use Smoking Status: Unknown if ever smoked Tobacco Use: Non-smoker Assessment/Plan All Active Problems Slurred speech (Acute) 1. Acute metabolic encephalopathy likely secondary to Acute UTI vs TIA Appears to have resolved. Will continue to monitor 2. 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 TIA, chronic parietal infarcts, MRI brain negative for acute CVA CTA head/neck shows severe stenosis of left cavernous carotid artery, 80%, right carotid artery 65% continue on aspirin, plavix, statin 2d-echo showed EF 40%, stage 1 diastolic dysfunction, bioprosthetic aortic valve Telemetry shows NSR Continue on aspirin, statin, Plavix 4. Bilateral carotid stenosis, L>R Vascular surgery consulted - recommends carotid ultrasound Continue on aspirin, plavix, statins 5. Hypertension, controlled, continue on Lisinopril 6. DVT PPx- Heparin SC Inpatient E&M: [id number] [facility] Hosp L3
--- NOTE | 2020-06-29 15:16 | CASEMGMT ---
HARSH called Salma at [facility] and told her patient will likely be ready tomorrow. She will start the pre-cert once HARSH faxes therapy notes from today. Awaiting today's PT/OT notes. Plan: d/c back to [facility] pending insurance approval. Angelina WADDELL
--- NOTE | 2020-06-29 15:55 | CASEMGMT ---
HARSH faxed PT/OT notes to [facility]. Angelina BOO MSW
--- NOTE | 2020-06-29 17:20 | CDU_ITS ---
Reason For Study: Carotid stenosis Rt. Velocities/BP Lt. Velocities/BP Prox CCA 46.5/6.9 cm/sec. Prox CCA 76.5/9 cm/sec. Mid CCA 48.7/8 cm/sec. Mid CCA 69.1/10.2 cm/sec. Dist CCA 56.4/9.1 cm/sec. Dist CCA 55.6/11.4 cm/sec. Prox ICA 58.6/11.3 cm/sec. Prox ICA 88.2/20.6 cm/sec. Mid ICA 83.8/20.1 cm/sec. Mid ICA 88.8/15.1 cm/sec. Dist ICA 88.8/20 cm/sec. Dist ICA 70.4/16.3 cm/sec. Rt. ICA/CCA = 1.82. Lt. ICA/CCA = 1.29. Prox ECA 64 cm/sec. Prox ECA 81.4 cm/sec. Rt. Vert. 56.9/13.9 cm/sec. Lt. Vert. 50.9/9.1 cm/sec. Right Extracranial There is intimal thickening but no significant atherosclerotic plaque noted in the right common carotid artery. There is heterogeneous, irregular atherosclerotic plaque noted in the right internal carotid artery. The atherosclerotic plaque causes acoustic shadowing. There is intimal thickening but no significant atherosclerotic plaque noted in the right external carotid artery. Antegrade flow is noted in the right vertebral artery. Left Extracranial There is intimal thickening but no significant atherosclerotic plaque noted in the left common carotid artery. There is heterogeneous, irregular atherosclerotic plaque noted in the left internal carotid artery. There is intimal thickening but no significant atherosclerotic plaque noted in the left external carotid artery. Antegrade flow is noted in the left vertebral artery. Procedure Carotid Duplex [id number]. This is a Carotid Duplex examination using B-mode, color flow and specral Doppler. Exam performed portable in patient room. Interpretation Summary Irregular calcific plaque at the proximal right internal carotid artery with less than 50% stenosis Less than 50% stenosis right external carotid artery Irregular calcific plaque at the proximal left internal carotid artery with less than 50% stenosis. Less than 50% stenosis left external carotid artery Patent and antegrade vertebrals bilaterally Ordering Physician: Yanira Toledo Referring Physician: Rosalinda Morataya Performed By: Amina Chairez RVT
[2020-06-29] MEDS: Atorvastatin Calcium 80 MG Tablet PO (21:41)
[2020-06-30] MEDS: 0.9% Normal Saline 1,000 ML 75 ML IV (00:58)
[2020-06-30 03:00] VITALS: PULSE 73
[2020-06-30 03:30] VITALS: BP 156/76; PULSE 87; RESP 18; TEMP 36.5; O2SAT 97
[2020-06-30] MEDS: Menthol/Lanolin/Calamine/Znox 113 GM Tube 1 APPLIC TOPICAL ×2 (05:28→14:21)
[2020-06-30] MEDS: Heparin Injection (Vial) 5,000 UNIT/ML VIAL 5000 UNIT SC ×2 (05:29→14:22)
--- NOTE | 2020-06-30 06:35 | PCM.CONS.GEN ---
Problem List (1) Slurred speech Status: Acute (2) Bilateral carotid artery stenosis Status: Acute Reason for Consult Date of Consultation: 06/30/20 History of Present Illness: The patient is a 85 year old F who I have been asked to see by Dr. Toledo for evaluation of carotid occlusive disease. A written copy my surgical consult and recommendations will be present in the charting. Is an 85-year-old female. She resides in a nursing care facility. I am not able to get a history and physical from her today. She seems confused. She recognizes me as my father who is a general surgeon. She is not able to provide a consistent history. She was admitted to the [facility] on June 28, 2000 with slurred speech and confusion. By report she went to bed 11 PM by 4 AM she was having difficulties. The patient had a telemetry stroke consult. The emergency room was advised to get a CTA of the head neck and we contact them if large vessel occlusion or stenosis was identified. If no large vessel occlusion or stenosis then proceed with MRI. On June 28, 2020 the patient had a CTA of the head neck. It is of note that there is clinically significant disease. There is calcified plaque formation of the right cavernous carotid artery with a moderate 50 to 75% stenosis. There is calcific plaque formation of the left cavernous carotid artery with a severe stenosis of greater than 75%. This is actually estimated to be approximately 80% luminal narrowing. Of pertinence is that there is as chronic calcific plaque of the aortic arch and great vessels arising from the aortic arch. There is mild atherosclerotic plaque formation with minimal narrowing of the right carotid bulb. There is felt to be less than 50% stenosis of the right internal carotid artery of the neck. There is minimal narrowing of the left carotid bulb. The region of the left internal carotid artery is without hemodynamically significant stenosis. Additional comment is made that incidental thyroid nodules identified. A brain MRI was obtained on June 28, 2020. There is felt to be a chronic right parietal infarct. There are bilateral basal ganglia and cerebellar lacunar infarcts. There is moderate chronic microvascular ischemic changes. By charting report the patient was previously on anticoagulation but had to have this stopped because of a GI bleed. At the nursing facility report is that she was on a low-dose aspirin. By medical charting she has had a previous stroke in 2019. By report this was felt to be cardioembolic. She has a history of aortic valvular disease with bioprosthetic aortic valve replacement. History of cardiomyopathy. An echocardiogram was obtained showing an ejection fraction of 40%. Mild to moderate segmental systolic dysfunction. Bioprosthetic aortic valve is noted. It is of noted that on presentation to the emergency room her blood pressure was 198/124. Her current blood pressure is 156/76 with a heart rate of 87 Patient was felt to possibly have urinary tract infection presentation because of the urine leukocyte esterase of 510-25 red blood cells and greater than 100 white blood cells but no urine bacteria. Culture demonstrates twos findings, gram-negative jackeline lactose internal review and audit compliance 11-25,000 and a separate gram-negative jackeline 11-25,000. The patient received a dose of Rocephin in the emergency room. She is a previous history of alcoholism. Previous history of tobacco use. History of COPD. As noted she is residing in a nursing care facility. Telemetry neurology was reconsulted on June 29, 2020. They could not differentiate between metabolic encephalopathy versus TIA. I did not see recommendations from them regarding the critically severe stenosis of the left cavernous carotid and the additional 50 to 75% stenosis of the right cavernous carotid. The CTA of the neck did not demonstrate any medically significant cervical carotid occlusive disease. Past Medical History Allergies gluten Allergy (Verified 06/28/20 05:34) NEEDS FOLLOW-UP iron Allergy (Verified 06/28/20 05:34) NEEDS FOLLOW-UP Penicillins [PCN] Allergy (Verified 06/28/20 05:34) NEEDS FOLLOW-UP shellfish derived Allergy (Verified 06/28/20 05:34) NEEDS FOLLOW-UP Sulfa (Sulfonamide Antibiotics) Allergy (Verified 06/28/20 05:34) NEEDS FOLLOW-UP Home Medications: Ambulatory Orders Medication Instructions Recorded Aspirin [Aspirin, Baby] 81 mg PO DAILY@0800 06/28/20 Ergocalciferol (Vitamin D2) 1,250 mcg PO DAILY 06/28/20 [Drisdol] Escitalopram Oxalate [Lexapro] 5 mg PO DAILY 06/28/20 Fluticasone 0.05% [Flonase Nasal 2 spray NASAL DAILY 06/28/20 [place]] Ipratropium/Albuterol Sulfate 3 ml INHALATION Q4H 06/28/20 [Iprat-Albut 0.5-3(2.5) mg/3 ml] Metoprolol Succinate [[place] 50 mg PO DAILY 06/28/20 [place]] Pantoprazole Sodium 40 mg PO DAILY 06/28/20 Surgical History: - - Aortic valve replacement Psychiatric History: No pertinent psych hx [facility] Smoking Status: Unknown if ever smoked Tobacco Use: Non-smoker Alcohol: None Drugs: None - *Family History Maternal History Items: Unknown Paternal History Items: Unknown Review of Systems Unable to obtain accurate/complete ROS d/t: Patient is unable Patient Problems: Active and Suspected Problems Slurred speech (Acute) - Physical Exam Vitals/I&O's: Vital Signs Temp Pulse Resp BP Pulse Ox 97.7 F L 87 18 156/76 H 97 06/30/20 03:30 06/30/20 03:30 06/30/20 03:30 06/30/20 03:30 06/30/20 03:30 Oxygen Delivery Method Room Air Weight: 139 lb 1.787 oz Body Mass Index (BMI) 23.8 Finger Stick Blood Glucose 97 Intake and Output for Last 24 Hours 06/28/20 06/29/20 06/30/20 23:59 23:59 23:59 Intake Total 1290 / 1490 2883.75 / 2883.75 33.75 / 33.75 Output Total 1200 / 1450 810 / 810 Balance 90 / 40 2073.75 / 2073.75 33.75 / 33.75 General: - - Patient is awake and, she is able to speak, when I mention that she resides in a long-term she becomes teary and has an unusual laugh HEENT: Atraumatic Oral: Moist Mucosa Neck: Supple, No JVD, Carotid Bruit, Left, Carotid Bruit, Right, - - Carotids 3+ pulsation Lungs: Clear to auscultation, - - Increased anterior posterior diameter Cardiovascular: Regular rate, Regular Rhythm, - - Soft 2/6 systolic ejection murmur Abdomen: Soft, Non Tender Extremities: No Calf Tenderness Psych/Mental Status: - - Inappropriate Microbiology Past 72 Hours 06/28/20 06:28 Urine, Catheterized Urine Culture - Preliminary GNR lactose internal review and audit compliance Gram negative jackeline 06/28/20 06:10 Mucosa - Nose SARS-CoV-2 Antigen (Rapid) - Final Current Medications Aspirin (Aspirin 81 Mg Tab.Chew) 81 mg PO DAILY@0800 [facility] Last Admin: 06/29/20 08:12 Dose: 81 mg Documented by: Atorvastatin Calcium (Atorvastatin Calcium 80 Mg Tablet) 80 mg PO QHS [facility] Last Admin: 06/29/20 21:41 Dose: 80 mg Documented by: Calamine/Phenol (Menthol/Lanolin/Calamine/Znox 113 Gm Tube) 1 applic TOPICAL TID [facility]; Protocol Last Admin: 06/30/20 05:28 Dose: 1 applic Documented by: Clopidogrel Bisulfate (Clopidogrel Bisulfate 75 Mg Tablet) 75 mg PO DAILY [facility] Last Admin: 06/29/20 08:12 Dose: 75 mg Documented by: Escitalopram Oxalate (Escitalopram Oxalate 10 Mg Tablet) 5 mg PO DAILY [facility] Last Admin: 06/29/20 08:12 Dose: 5 mg Documented by: Heparin Sodium (Porcine) (Heparin Injection (Vial) 5,000 Unit/Ml Vial) 5,000 unit SC Q8 [facility] Last Admin: 06/30/20 05:29 Dose: 5,000 unit Documented by: Sodium Chloride () 1,000 mls @ 75 mls/hr IV .[id number] [facility] Last Admin: 06/30/20 00:58 Dose: 75 mls/hr Documented by: Ceftriaxone Sodium (Rocephin) 1 gm in 50 mls @ 100 mls/hr IV Q24 [facility] Last Infusion: 06/29/20 10:18 Dose: Infused Documented by: Lisinopril (Lisinopril 5 Mg Tablet) 5 mg PO DAILY [facility] Last Admin: 06/29/20 08:14 Dose: 5 mg Documented by: Pantoprazole Sodium (Pantoprazole Sodium 40 Mg Tablet) 40 mg PO DAILY [facility] Last Admin: 06/29/20 08:12 Dose: 40 mg Documented by: Sodium Chloride (0.9% Saline Lock 10 Ml Syringe) 10 - 40 ml IV UD PRN PRN Reason: SALINE FLUSH Assessment/Plan All Active Problems Slurred speech (Acute) Bilateral carotid artery stenosis (Acute) 85-year-old female who presents with slurred speech and confusion. She resides in a nursing facility. She is medical comorbidities including history of bioprosthetic aortic valve placement. Previous history of stroke. Previous history of alcoholism. Previous history of GI bleed. She was admitted admitted on in management with low-dose aspirin. There is concern about a possible urinary tract infection but cultures are below diagnostic levels. Her white blood cell count was 8.9 on admission and her hemoglobin 11.6 with hematocrit of 35.8 platelet count of 173,000. In addition she has stage IV renal insufficiency with a BUN of 38 and a creatinine 1.48 and a estimated GFR of 25. Rapid Covid test was negative Imaging suggests bilateral vascular and lacunar infarcts. Findings suggest a previous right parietal infarct. Findings do not suggest clinically significant cervical carotid disease. Findings do suggest critical stenosis of the left cavernous carotid with additional 50 to 75% stenosis of the right cavernous carotid. The patient was hypertensive on presentation to the emergency room. It is not known whether this was a primary response or secondary response to the event. At this point there does not appear to be evidence to suggest clinically significant cervical carotid occlusive disease. I do recommend obtaining carotid duplex exam. Will defer recommendations regarding the patient's cavernous carotid disease to neurology or neurosurgery. I appreciate the opportunity of assisting with her surgical care. Based upon the current information I do not suspect that she will be a candidate for cervical carotid intervention. Gustavo Garcia M.D., F.A.C.S.
[2020-06-30 07:00] VITALS: PULSE 70
[2020-06-30 07:57] VITALS: O2SAT 96
--- NOTE | 2020-06-30 08:46 | TREXTCAR_ITS ---
- Diet 06/28/20 12:23 Diet: Cardiac - Heart Healthy Food consistency:: Regular Liquid Consistency:: Regular/Thin Dietary Modifications:: Gluten Free Type of Dietary Supplement:: Ensure Pudding Is pt able to select menu?: No Diet Comments: no shellfish; ensure pudding BID w/ lunch & dinner EASY TO CHEW - Routine Orders/Code Status Routine Lab Work: CBC - within 3 days, BMP - within 3 days - Therapies Weight Bearing: Weight bearing as tolerated Physical Therapy: Eval and Treat Occupational Therapy: Eval and Treat Speech Therapy: Eval and Treat - Allergies/Procedures Done in Hospital Allergies/Adverse Reactions: Allergies gluten Allergy (Verified 06/28/20 05:34) NEEDS FOLLOW-UP iron Allergy (Verified 06/28/20 05:34) NEEDS FOLLOW-UP Penicillins [PCN] Allergy (Verified 06/28/20 05:34) NEEDS FOLLOW-UP shellfish derived Allergy (Verified 06/28/20 05:34) NEEDS FOLLOW-UP Sulfa (Sulfonamide Antibiotics) Allergy (Verified 06/28/20 05:34) NEEDS FOLLOW-UP Procedures: 2-D Echocardiogram - Type of Care/Length of Stay Estimated LOS: Convalescent Care Less Than 30 days Type of Care Needed: Skilled Rehab Potential: Fair Prognosis: Fair - Additional Orders/Day of Discharge Day of Discharge: 06/30/20 - Dietary and Speech Recommendations Dietitian Recommendations/Changes: 1.) Cardiac/gluten-free diet with texture/consistency as per CANCELLATION CLERK--advanced to pureed/thin liquids at this time. 2.) Liberalize diet as needed if intake established suboptimal. 3.) Will add ensure pudding BID w/ lunch and dinner as tolerated. Speech Linguistic Eval Summary: Pt pleasant and appropriate throughout evaluation. Oriented to name indep; very min cues needed for age, , location, reason for stay, and date (indep verbalized yesterday was Laurent's Day). Speech is very mildly dysarthric and moderately aphasic. Pt able to convey most wants, needs, and ideas but does present with both literal and naya bal paraphasias frequently as well as neologisms less frequently. Additionally, pt did perseverate on some words throughout the evaluation. Pt is aware of these speech deficits and does verbalize some frustration. Pt is [place] which does compound auditory comprehension issues. Was able to follow commands for oral mechanism examination given repetition as needed. Immediately followed two-step unrelated kinesthetic commands 100%. Further evaluation of cognitive- linguistic functioning warranted, though pt does reside at a SNF baseline. - Follow Up Care Primary Care Physician: Rosalinda Morataya MD [Primary Care Provider] - Please follow up with your Primary Care Physician in: within 1-2 weeks of discharge
--- NOTE | 2020-06-30 09:15 | DS.PCM_ITS ---
Discharge Date and Diagnosis - Problem List Patient Problems: Active and Suspected Problems Bilateral carotid artery stenosis (Acute) Date of Admission: 06/28/20 Date of Discharge: 06/30/20 - Primary Discharge Diagnosis Acute Problems: Active Problems Acute metabolic encephalopathy Acute Enterobacter/Proteus UTI Symptomatic TIA Bilateral carotid stenosis, newly diagnosed Hospital Course and Treatment Imaging Results: Clinical Impression(s) from Imaging Studies Brain CT 06/28/20 05:32 IMPRESSION: Acute or subacute infarction in the right parietal lobe. Chronic involutional changes of the brain. N.B. : The above information has been verbally conveyed by Jace Abdul MD to Sakina Triplett MD, on 06/28/2020 05:53:05 (ET). Electronically Signed: Jace Abdul MD at 6:00 EST , Service support , ADDENDUM: 06/28/20 0607 IMPRESSION: Acute or subacute infarction in the right parietal lobe. Chronic involutional changes of the brain. N.B. : The above information has been verbally conveyed by Jace Abdul MD to Sakina Triplett MD, on 06/28/2020 05:53:05 (ET). Electronically Signed: Jace Abdul MD at 6:00 EST , Service support , Chest X-Ray 06/28/20 05:32 IMPRESSION: Hyperinflation. Findings suggestive of mild scarring at the lung bases. Electronically Signed: Sudhakar Bernardo MD at 8:18 EST , Service support , Head/Neck CTA 06/28/20 06:24 IMPRESSION: Severe stenosis of the left cavernous carotid artery, with approximately 80% luminal narrowing. Moderate stenosis of the right cavernous carotid artery, with approximately 65% luminal narrowing. No visualized occlusion of major intracranial arteries. No demonstrated aneurysm. Nonvisualization of the posterior communicating arteries, normal variant. No evidence for hemodynamically significant arterial stenosis of the cervical carotid or cervical vertebral arteries. Incidental finding of thyroid nodules. Suggest elective follow-up thyroid ultrasound for further characterization. N.B. : The above information has been verbally conveyed by Jace Abdul MD to Dr Ioana MD, on 06/28/2020 07:16:08 (ET). Electronically Signed: Jace Abdul MD at 7:48 EST , Service support , ADDENDUM: 06/28/20 0755 IMPRESSION: Severe stenosis of the left cavernous carotid artery, with approximately 80% luminal narrowing. Moderate stenosis of the right cavernous carotid artery, with approximately 65% luminal narrowing. No visualized occlusion of major intracranial arteries. No demonstrated aneurysm. Nonvisualization of the posterior communicating arteries, normal variant. No evidence for hemodynamically significant arterial stenosis of the cervical carotid or cervical vertebral arteries. Incidental finding of thyroid nodules. Suggest elective follow-up thyroid ultrasound for further characterization. N.B. : The above information has been verbally conveyed by Jace Abdul MD to Dr Ioana MD, on 06/28/2020 07:16:08 (ET). Electronically Signed: Jace Abdul MD at 7:48 EST , Service support , Brain MRI 06/28/20 08:15 IMPRESSION: No acute intracranial abnormality. Chronic right parietal infarct. Moderate chronic microvascular ischemic changes. Electronically Signed: Ml Gee MD at 15:41 EST Tel , Service support , Vascular surgery Tele-neurology Operations: None Procedures: 2-D Echocardiogram Summary of Care Provided: The patient is a 85 year old F resident in a group home comes in with slurred speech. Patient was found to have slurred speech. Work-up in the emergency department with CT of the brain showed acute/subacute right parietal lobe infarct. CTA of the head and neck showed severe stenosis of the left cavernous carotid artery, approximately 80% luminal narrowing, moderate stenosis of the right cavernous carotid artery, approximately 65%. Teleneurology was consulted. Patient was not found to be a TPA candidate. Patient was started on aspirin and Plavix as well as statin. Patient's other work-up in the ED was suggestive of acute UTI. She was started on IV ceftriaxone. She was admitted to the telemetry floor and worked up for stroke. MRI of the brain was negative for acute intracranial abnormality. It showed chronic right parietal infarct with moderate chronic microvascular ischemic changes. 2D echo showed EF of 40% with stage I diastolic dysfunction. SOC was consulted and agreed to the above plan and recommended vascular consult. Vascular surgery was consulted and commended Doppler ultrasound which showed less than 50% stenosis in the right internal carotid artery with irregular calcified plaque bilaterally Patient continued to improve. Her urine cultures came back positive for Enterobacter and Proteus, that was resistant to ceftriaxone. She was discharged back to the group home on Levaquin. Patient Problems: Active and Suspected Problems Bilateral carotid artery stenosis (Acute) Subjective: On the day of discharge, patient was seen and examined. Denied any new complaints. No acute events overnight Objective: Physician exam: General: Alert, Cooperative, No apparent distress, Well developed, Well nourished HEENT: Atraumatic, PERRLA, EOMI, Normocephalic Oral: Moist Mucosa Neck: Supple, No JVD, Negative Carotid Bruits, Trachea Midline, Thyroid Normal Size and Texture Lungs: Clear to auscultation, Normal air movement, No rhonchi, No wheeze, No rales Cardiovascular: Regular rate, Regular Rhythm, Normal S1, Normal S2, No murmurs, PMI Normal, No rub noted, No Gallop Abdomen: Bowel Sounds Present, Soft, Non Tender, Non-Distended Extremities: No clubbing, No cyanosis, No edema, Capillary Refill Less than 3 Seconds Skin: No rashes, No breakdown Musculoskeletal: No Tenderness to Palpation of Joints or Extremities Neurological: Cranial nerves II-XII grossly intact, - - Patient has moderate expressive aphasia Psych/Mental Status: Normal Affect, - - Patient has expressive aphasia - Physical Exam Vitals/I&O's: Vital Signs Temp Pulse Resp BP Pulse Ox 97.7 F L 70 18 156/76 H 96 06/30/20 03:30 02/17/21 07:00 06/30/20 03:30 06/30/20 03:30 06/30/20 07:57 Oxygen Delivery Method Room Air Weight: 63.1 kg Body Mass Index (BMI) 23.8 Finger Stick Blood Glucose 97 Intake and Output for Last 24 Hours 06/28/20 06/29/20 06/30/20 23:59 23:59 23:59 Intake Total 1290 / 1490 2883.75 / 2883.75 33.75 / 33.75 Output Total 1200 / 1450 810 / 810 Balance 90 / 40 2073.75 / 2073.75 33.75 / 33.75 Microbiology Past 72 Hours 06/28/20 06:28 Urine, Catheterized Urine Culture - Preliminary Enterobacter aerogenes Gram negative jackeline 06/28/20 06:10 Mucosa - Nose SARS-CoV-2 Antigen (Rapid) - Final Current Medications Aspirin (Aspirin 81 Mg Tab.Chew) 81 mg PO DAILY@0800 [facility] Last Admin: 06/29/20 08:12 Dose: 81 mg Documented by: Atorvastatin Calcium (Atorvastatin Calcium 80 Mg Tablet) 80 mg PO QHS [facility] Last Admin: 06/29/20 21:41 Dose: 80 mg Documented by: Calamine/Phenol (Menthol/Lanolin/Calamine/Znox 113 Gm Tube) 1 applic TOPICAL TID [facility]; Protocol Last Admin: 06/30/20 05:28 Dose: 1 applic Documented by: Clopidogrel Bisulfate (Clopidogrel Bisulfate 75 Mg Tablet) 75 mg PO DAILY [facility] Last Admin: 06/29/20 08:12 Dose: 75 mg Documented by: Escitalopram Oxalate (Escitalopram Oxalate 10 Mg Tablet) 5 mg PO DAILY [facility] Last Admin: 06/29/20 08:12 Dose: 5 mg Documented by: Heparin Sodium (Porcine) (Heparin Injection (Vial) 5,000 Unit/Ml Vial) 5,000 unit SC Q8 [facility] Last Admin: 06/30/20 05:29 Dose: 5,000 unit Documented by: Sodium Chloride () 1,000 mls @ 75 mls/hr IV .[id number] [facility] Last Admin: 06/30/20 00:58 Dose: 75 mls/hr Documented by: Levofloxacin (Levaquin Iv) 500 mg in 100 mls @ 100 mls/hr IV X1 ONE Stop: 06/30/20 10:59 Levofloxacin (Levaquin Iv) 250 mg in 50 mls @ 50 mls/hr IV Q24 [facility] Lisinopril (Lisinopril 5 Mg Tablet) 5 mg PO DAILY [facility] Last Admin: 06/29/20 08:14 Dose: 5 mg Documented by: Pantoprazole Sodium (Pantoprazole Sodium 40 Mg Tablet) 40 mg PO DAILY [facility] Last Admin: 06/29/20 08:12 Dose: 40 mg Documented by: Sodium Chloride (0.9% Saline Lock 10 Ml Syringe) 10 - 40 ml IV UD PRN PRN Reason: SALINE FLUSH Discharge Diet: Low fat/ Low Cholesterol, 2000 mg Sodium Diet Home Medications: Medications to take at Discharge Aspirin [Aspirin, Baby] 81 mg PO DAILY@0800 06/28/20 Ergocalciferol (Vitamin D2) [Drisdol] 1,250 mcg PO DAILY 06/28/20 Escitalopram Oxalate [Lexapro] 5 mg PO DAILY 06/28/20 Fluticasone 0.05% [Flonase Nasal [place]] 2 spray NASAL DAILY 06/28/20 Ipratropium/Albuterol Sulfate [Iprat-Albut 0.5-3(2.5) mg/3 ml] 3 ml INHALATION Q4H 06/28/20 Pantoprazole Sodium 40 mg PO DAILY 06/28/20 Atorvastatin Calcium [Lipitor] 80 mg PO QHS 30 Days #30 tab 06/30/20 Clopidogrel Bisulfate [Plavix] 75 mg PO DAILY 30 Days #30 tab 06/30/20 Lisinopril [Zestril] 5 mg PO DAILY 30 Days #30 tab 06/30/20 levoFLOXacin tablet [Levaquin tablet] 250 mg PO DAILY 5 Days #5 tab 06/30/20 Following Prescriptions Were Given to Patient: levoFLOXacin tablet [Levaquin tablet] 250 mg PO DAILY 5 Days #5 tab Atorvastatin Calcium [Lipitor] 80 mg PO QHS 30 Days #30 tab Clopidogrel Bisulfate [Plavix] 75 mg PO DAILY 30 Days #30 tab Lisinopril [Zestril] 5 mg PO DAILY 30 Days #30 tab Primary Care Physician: Rosalinda Morataya MD [Primary Care Provider] - Please follow up with your Primary Care Physician in: within 1-2 weeks of discharge Disposition: Retirement facility Minutes spent on discharge:: 40 Patient Condition:: Stable Medical Necessity - Tobacco Use Smoking Status: Unknown if ever smoked Tobacco Use: Non-smoker Meaningful Use Info Meaningful Use Diagnoses (Choose all that apply): Ischemic CVA - CVA Therapy Assessed for PT,OT and/or ST?: Yes - Ischemic Stroke Antithrombotic order at d/c?: No Reason antithrombotic not ordered: Treatment not Indicated Dx of Atrial fib/flutter?: No Anticoagulant at discharge?: No Reason anticoagulant not ordered: Treatment not Indicated Statins at discharge?: Yes Primary Dx Acute Ischemic CVA?: No IV tPA ordered during stay?: No Reason IV t-PA not ordered: Treatment not Indicated Inpatient E&M: 51254 Disch Hosp
[2020-06-30 10:11] VITALS: BP 157/75; PULSE 74; RESP 16; TEMP 36.3; O2SAT 98
[2020-06-30] MEDS: Escitalopram Oxalate 10 MG Tablet 5 MG PO (10:16)
[2020-06-30] MEDS: Clopidogrel Bisulfate 75 MG Tablet PO (10:16)
[2020-06-30] MEDS: Pantoprazole Sodium 40 MG Tablet PO (10:16)
[2020-06-30] MEDS: Aspirin 81 MG TAB.CHEW PO (10:16)
[2020-06-30] MEDS: Lisinopril 5 MG Tablet PO (10:16)
[2020-06-30] MEDS: levoFLOXacin IV 500 MG/100 ML BAG 100 MG IV (10:22)
--- NOTE | 2020-06-30 11:27 | PHA.DC.MR ---
Pharmacy Service has performed discharge medication reconciliation for this patient. The patient's discharge medication list was reviewed for discrepancies and discrepancies were resolved. Home Medications Aspirin [Aspirin, Baby] 81 mg PO DAILY@0800 06/28/20 Ergocalciferol (Vitamin D2) [Drisdol] 1,250 mcg PO DAILY 06/28/20 Escitalopram Oxalate [Lexapro] 5 mg PO DAILY 06/28/20 Fluticasone 0.05% [Flonase Nasal Normal] 2 spray NASAL DAILY 06/28/20 Ipratropium/Albuterol Sulfate [Iprat-Albut 0.5-3(2.5) mg/3 ml] 3 ml INHALATION Q4H 06/28/20 Pantoprazole Sodium 40 mg PO DAILY 06/28/20 Atorvastatin Calcium [Lipitor] 80 mg PO QHS 30 Days #30 tab 06/30/20 Clopidogrel Bisulfate [Plavix] 75 mg PO DAILY 30 Days #30 tab 06/30/20 Lisinopril [Zestril] 5 mg PO DAILY 30 Days #30 tab 06/30/20 levoFLOXacin tablet [Levaquin tablet] 250 mg PO DAILY 5 Days #5 tab 06/30/20
--- NOTE | 2020-06-30 14:34 | CASEMGMT ---
Social Work Pt is ready for discharge today. SW met with pt and informed and pt agreeable to return to [facility]. SW called to [facility] and [place] and they are able to accept pt back today. Orders faxed to [facility] and transportation arranged with [facility] for a 1530 continuous pickling line pickler via [employer] van. Phone call to pt roscoe Wilkins and updated. Nursing notified. ALFREDO Mcclelland
[2020-06-30 15:04] VITALS: BP 159/100; PULSE 87; RESP 16; TEMP 36.5; O2SAT 97
== END 2020-06-30 16:07 | disposition skilled nursing facility (03) | DRG 67 ==
LOC: ED 06:07 → PCU 07:35
PROVIDERS: Admitting Provider Internal Medicine; Emergency Provider Emergency Medicine; PCP Internal Medicine Geriatric Medicine; Visit Provider Internal Medicine
DX: I65.23 Occlusion and stenosis of bilateral carotid arteries (principal); G93.41 Metabolic encephalopathy; N30.00 Acute cystitis without hematuria; Z16.19 Resistance to other specified beta lactam antibiotics; B96.4 Proteus (mirabilis) (morganii) as the cause of diseases classified elsewhere; B96.89 Other specified bacterial agents as the cause of diseases classified elsewhere; Z79.899 Other long term (current) drug therapy; Z86.73 Personal history of transient ischemic attack (TIA), and cerebral infarction without residual deficits; I25.10 Atherosclerotic heart disease of native coronary artery without angina pectoris; I25.5 Ischemic cardiomyopathy; I35.9 Nonrheumatic aortic valve disorder, unspecified; Z95.3 Presence of xenogenic heart valve; R53.81 Other malaise; I12.9 Hypertensive chronic kidney disease with stage 1 through stage 4 chronic kidney disease, or unspecified chronic kidney disease; N18.30 Chronic kidney disease, stage 3 unspecified; I70.0 Atherosclerosis of aorta; E04.2 Nontoxic multinodular goiter; Z87.891 Personal history of nicotine dependence
CPT/HCPCS: 36415; 51702; 70450; 70496; 70498; 70551; 71045; 80048; 81001; 84484; 85025; 85610; 85730; 87077; 87086; 87088; 87186; 87426; 92507; 92526; 92610; 93005; 93306; 93880; 94762; 97110; 97162; 97166; 97530; 97802; 99285; J7030; J7050; Q9967; A4216